=== PATIENT | male | born 1970 | race Caucasian/White ===

== ENCOUNTER 2022-03-16 23:34 | Emergency (ER) | payer SELFPAY ==
--- OUTSIDE RECORDS SUMMARY | 2022-03-16 23:37 | XMS REPORT | Continuity of Care Document ---
:1970 Author Organization [facility] t Address [address] [place] [address] Care Team Providers Name Role Phone Bui_Q Attending Clinician Unavailable Bui_Q_WAG Attending Clinician Unavailable Xu Attending Clinician Unavailable MAXWELL Attending Clinician Unavailable DEAN Attending Clinician Unavailable DO DIANA DENIS Attending Clinician Unavailable Bui_Jonathon Admitting Clinician Unavailable Bui_Q_WAG Admitting Clinician Unavailable Xu Admitting Clinician Unavailable CIRA Admitting Clinician Unavailable TRACI, NELIDA Admitting Clinician Unavailable Payers Payer Name Policy Type Policy Number Effective Date Expiration Date S ource [place] [id number] 2017 00:00:00 [place] Problems Condition Condition Condition Status Onset Resolution Last Treating Co mments Source Name Details Category Date Date Treatment Clinician Date Hypertensi Hypertensi Problem Active V illage ve ve 9 Family disorder Disorder 00:00: Practi c 00 e Allergies, Adverse Reactions, Alerts This patient has no known allergies or adverse reactions. Social History Smoking Status Start Date Stop Date Source Heavy Tobacco Smoker [facility] Medications Ordered Filled Start Stop Current Ordering Indication Dosage Frequency Signature Comments Components Source Medication Medication Date Date Medication? Clinician (SIG) Name Name diclofenac diclofenac No 1 BID diclofenac [place] sodium 75 sodium 75 sodium 75 da mg mg mg Medical tablet,girma tablet,girma tablet,del Group yed release yed release ayed Take 1 Take 1 release tablet tablet Take 1 twice a day twice a day tablet by oral by oral twice a route. route. day by oral route. Medrol Medrol No 1dose Medrol [place] (Edvin) 4 mg (Edvin) 4 mg pk(s) (Edvin) 4 mg da tablets in tablets in tablets in Medical a dose pack a dose pack a dose Group Take 1 dose Take 1 dose pack Take pk by oral pk by oral 1 dose pk route. route. by oral route. ramipril ramipril No ramipril Melissa sheyla 2.5 mg 2.5 mg 2.5 mg Family capsule capsule capsule Practi c e Immunizations Ordered Immunization Filled Immunization Date Status Commen ts Source Name Name Tdap Tdap 2018-06-[address] [facility] 00:00:00 Practice Vital Signs Vital Name Observation Time Observation Value Comments Source BP Diastolic 2020-11-21 00:00:00 90 mm[Hg] [facility] Height 2020-11-21 00:00:00 71 [in_i] [facility] BMI (Body Mass 2020-11-21 00:00:00 21.8 kg/m2 [facility]) Practice BP Systolic 2020-11-21 00:00:00 129 mm[Hg] [facility] Body Weight 2020-11-21 00:00:00 156.2 [lb_av] [facility] BP Diastolic 2020-11-08 00:00:00 74 mm[Hg] [facility] Height 2020-11-08 00:00:00 71 [in_i] [facility] BMI (Body Mass 2020-11-08 00:00:00 22.6 kg/m2 [facility]) Practice BP Systolic 2020-11-08 00:00:00 122 mm[Hg] [facility] Body Weight 2020-11-08 00:00:00 161.8 [lb_av] [facility] BP Diastolic 2020-08-30 00:00:00 102 mm[Hg] [facility] Height 2020-08-30 00:00:00 71 [in_i] [facility] BMI (Body Mass 2020-08-30 00:00:00 22.3 kg/m2 [facility] Group BP Systolic 2020-08-30 00:00:00 146 mm[Hg] [facility] Body Weight 2020-08-30 00:00:00 160.2 [lb_av] [facility] Procedures Procedure Date / Time Performed Performing Clinician Sour e Neurosurgery (Brain) 2009-11-04 00:00:00 [facility] Appendectomy [facility] Encounters Start End Encounter Admission Attending Care Care Encounter Source Date/Time Date/Time Type Type Clinicians Facility Department ID 2020-11-23 2020-11-23 Outpatient Bui_Q VFP VFP [id number] [facility] 09:17:00 09:17:00 [id number] Family Practic e 2020-11-21 2020-11-21 Outpatient Bui_Q VFP VFP [id number] [facility] 12:26:00 12:26:00 [id number] Family Practic e 2020-11-21 2020-11-21 [place] VFP [place] - [id number] [facility] 00:00:00 00:00:00 [facility] Practi rubén MD: [id number] [address] [facility], [address] [address] , Ph. 2020-11-14 2020-11-14 Outpatient Bui_Q_WAG VFP VFP [id number] [id number] [facility] 07:56:00 07:56:00 [id number] Family Practic e 2020-11-14 2020-11-14 Outpatient Bui_Q_WAG VFP VFP [id number] [facility] 07:56:00 07:56:00 [id number] Family Practic e 2020-11-08 2020-11-08 Outpatient Bui_Q VFP VFP [id number] [facility] 11:50:00 11:50:00 [id number] Family Practic e 2020-11-08 2020-11-08 [place] [facility]FP [place] - [id number] [facility] 00:00:00 00:00:00 [facility] - Practi rubén MD: [id number] [address] [facility], [address], [place] [address] , Ph. 2020-09-22 2020-09-22 Outpatient cMcDonald MMG MMG [id number] [facility] 12:07:00 12:07:00 1119 [facility] 2020-09-03 2020-09-03 Outpatient cMcDonald MMG MMG [id number] [facility] 02:17:00 02:17:00 [facility] 2020-08-30 2020-08-30 Outpatient cMcDonald MMG MMG [id number] [facility] 10:53:00 10:53:00 1027 [facility] 2020-08-30 2020-08-30 Alex [facility] [place] - [id number] M [facility] 00:00:00 00:00:00 Discovery patrizia Enrique MD: [address] [facility] [place] - [address], [place] [address] , Ph. 2020-08-18 2020-08-18 Outpatient cMcDonald [facility] [id number] [place] 12:31:00 12:31:00 1015 Medical Group 2020-08-18 2020-08-18 Outpatient cMcDonald [facility] [id number] [place] 12:31:00 12:31:00 1022 [facility] 2020-08-16 2020-08-16 Emergency ANDERSON ARREOLA [facility] [id number] [place] 00:00:00 00:00:00 [id number] Method i 2020-05-19 2020-05-20 Outpatient DEAN [facility] [id number] [place] 00:00:00 00:00:00 HOLLANDKYLAHPAULINE 501 Met hodi 2019-09-09 2019-09-09 Outpatient Bui_Q_WAG VFP [facility] [id number] [facility] 09:30:00 09:30:00 [id number] Family Practic e Results Test Description Test Time Test Comments Results Result Comments Source Cortisol [Mass/volume] in Serum or Plasma --morning sp ecimen 2020-11-19 23:24:00 Test Item Value Reference Range Interpretation Comme nts cortisol, A.M. (test code = cortisol, A.M.) 15.1 mcg/dL [facility] [Units/volume] in Serum or [id number] 23:24:00 Test Item Value Reference Range Interpretation Comments insulin (test code = insulin) 5.7 uIU/mL [facility] panel - Serum or [id number] 23:24:00 Test Item Value Reference Range Interpretation Comments cholesterol, total (test 219 mg/dL <200 H code = cholesterol, total) HDL cholesterol (test code = 65 mg/dL > or = 40 HDL cholesterol) triglycerides (test code = 108 mg/dL <150 triglycerides) Cholesterol in LDL 132 mg/dL (calc) H [Mass/volume] in Serum or Plasma (test code = 2089-1) chol/HDLC ratio (test code = 3.4 (calc) <5.0 chol/HDLC ratio) non HDL cholesterol (test 154 mg/dL (calc) <130 H code = non HDL cholesterol) [facility] [Mass Ratio] in [id number] 23:24:00 Test Item Value Reference Range Interpretation Comments creatinine, random urine (test 36 mg/dL 20-320 code = creatinine, random urine) albumin, urine (test code = 0.3 mg/dL see note: albumin, urine) albumin/creatinine ratio, 8 mcg/mg creat <30 random urine (test code = albumin/creatinine ratio, random urine) [facility] [id number] 23:24:00 Test Item Value Reference Range Interpretation Comments glutamic acid decarboxylase 65 Ab (test <5 <5 code = glutamic acid decarboxylase 65 Ab) ia-2 antibody (test code = ia-2 <5.4 <5.4 antibody) insulin autoantibody (test code = <0.4 <0.4 insulin autoantibody) [facility] 2000 panel - Serum or Plasma 2020-11-19 23:24:00 Test Item Value Reference Range Interpretation Comments glucose (test code = 87 mg/dL 65-99 glucose) urea nitrogen (BUN) (test 6 mg/dL 7-25 L code = urea nitrogen (BUN)) creatinine (test code = 0.72 mg/dL 0.70-1.33 creatinine) eGFR non-afr. norwegian 108 mL/min/1.73m2 > or = 60 (test code = eGFR non-afr. norwegian) eGFR (test 125 mL/min/1.73m2 > or = 60 code = eGFR ) BUN/creatinine ratio (test 8 (calc) 6-22 code = BUN/creatinine ratio) sodium (test code = sodium) 136 mmol/L 135-146 potassium (test code = 4.3 mmol/L 3.5-5.3 potassium) chloride (test code = 100 mmol/L 98-110 chloride) carbon dioxide (test code = 26 mmol/L 20-32 carbon dioxide) calcium (test code = 9.7 mg/dL 8.6-10.3 calcium) protein, total (test code = 8.1 g/dL 6.1-8.1 protein, total) albumin (test code = 4.8 g/dL 3.6-5.1 albumin) globulin (test code = 3.3 g/dL (calc) 1.9-3.7 globulin) albumin/globulin ratio 1.5 (calc) 1.0-2.5 (test code = albumin/globulin ratio) bilirubin, total (test code 0.6 mg/dL 0.2-1.2 = bilirubin, total) alkaline phosphatase (test 53 U/L 35-144 code = alkaline phosphatase) AST (test code = AST) 37 U/L 10-35 H ALT (test code = ALT) 30 U/L 9-[address] [facility] Auto Differential panel - [id number] 23:24:00 Test Item Value Reference Range Interpretation Comments white blood cell count (test 7.4 thousand/uL 3.8-10.8 code = white blood cell count) red blood cell count (test 4.91 million/uL 4.20-5.80 code = red blood cell count) hemoglobin (test code = 16.1 g/dL 13.2-17.1 hemoglobin) hematocrit (test code = 45.4 % 38.5-50.0 hematocrit) MCV (test code = MCV) 92.5 fL 80.0-100.0 MCH (test code = MCH) 32.8 pg 27.0-33.0 MCHC (test code = MCHC) 35.5 g/dL 32.0-36.0 RDW (test code = RDW) 12.2 % 11.0-15.0 platelet count (test code = 341 thousand/uL 140-400 platelet count) MPV (test code = MPV) 9.8 fL 7.5-12.5 absolute neutrophils (test 4573 cells/uL 9759-5025 code = absolute neutrophils) absolute lymphocytes (test 1732 cells/uL 850-3900 code = absolute lymphocytes) absolute monocytes (test code 629 cells/uL 200-950 = absolute monocytes) absolute eosinophils (test 407 cells/uL 15-500 code = absolute eosinophils) absolute basophils (test code 59 cells/uL 0-200 = absolute basophils) neutrophils (test code = 61.8 % neutrophils) lymphocytes (test code = 23.4 % lymphocytes) monocytes (test code = 8.5 % monocytes) eosinophils (test code = 5.5 % eosinophils) basophils (test code = 0.8 % basophils) [facility] [Mass/volume] in Serum or [id number] 23:24:00 Test Item Value Reference Range Interpretation Comments C-peptide (test code = C-peptide) 0.92 NG/mL 0.80-3.85 [facility] HospitalThyroxine (T4) free [Mass/volume] in Serum or Plasma 2020-11-19 23:24:00 Test Item Value Reference Range Interpretation Comments T4, free (test code = T4, free) 1.0 NG/dL 0.8-1.8 [facility]yrotropin [Units/volume] in Serum or [id number] 23:24:00 Test Item Value Reference Range Interpretation Comments TSH (test code = TSH) 1.84 mIU/L 0.40-4.50 [facility]Hemoglobin A1c measurement device [id number] 09:54:40 Test Item Value Reference Range Interpretation Comments Hemoglobin A1C Fingerstick: (test code 5.5 = Hemoglobin A1C Fingerstick:) [facility] A[facility] measurement device [id number] 09:54:40 Test Item Value Reference Range Interpretation Comments Hemoglobin A1C Fingerstick: (test code 5.5 = Hemoglobin A1C Fingerstick:) [facility] RNA [Presence] in Respiratory specimen by KELLI with probe [id number] 07:11:50 Test Item Value Reference Range Interpretation Comments SARS-CoV-2 (COVID-19) RNA Not detected Not-Detected [Presence] in Respiratory specimen by KELLI with probe detection (test code = 99539-6)
[2022-03-17] MEDS ORDERED: HYDROCODONE/APAP 5/325 MG TAB ONE (00:11)
--- NOTE | 2022-03-17 01:29 | ER ---
Nurse's Notes [facility] Name: Alvaro Simon Age: 51 yrs Sex: Male : 1970 Arrival Date: 03/16/2022 Time: 23:39 Bed 5 Private MD: Diagnosis: Dental pain;Dental infection Presentation: 03/17 00:01 Chief complaint: Patient states: "I haven't been able to sleep in 3 days because the jb4 pain is so bad. It started as tooth pain, but now it hurts up to my eye, down my neck, and into my ear.". Coronavirus screen: Vaccine status: Patient reports being unvaccinated. At this time, the client does not indicate any symptoms associated with coronavirus-19. Ebola Screen: No symptoms or risks identified at this time. Mechanism of Injury: No Mechanism of Injury. The patient denies any loss of vision. Initial Sepsis Screen: Does the patient meet any 2 criteria? No. Patient's initial sepsis screen is negative. Does the patient have a suspected source of infection? No. Patient's initial sepsis screen is negative. Risk Assessment: Do you want to hurt yourself or someone else? Patient reports no desire to harm self or others. Onset of symptoms was March 13, 2022. 00:01 Method Of Arrival: Ambulatory jb4 00:01 Acuity: RUTH 4 jb4 Triage Assessment: 00:05 General: Appears in no apparent distress. uncomfortable, Behavior is cooperative, jb4 appropriate for age. Pain: Complains of pain in left sided tooth pain Pain radiates to left ear, left eye, left lateral aspect of neck and left anterior aspect of neck Pain currently is 10 out of 10 on a pain scale. Quality of pain is described as throbbing. 00:07 EENT: Reports dental pain. jb4 Historical: - Allergies: 00:03 No Known Allergies; jb4 - Home Meds: 00:03 None [Active]; jb4 - PMHx: 00:03 Hypertensive disorder; jb4 - PSHx: 00:03 None; jb4 - Immunization history:: Client reports having NOT received the Covid vaccine. Flu vaccine is up to date. - Social history:: Smoking status: Patient reports the use of cigarette tobacco products, smokes two packs cigarettes per day. Screenin:06 Abuse screen: Denies threats or abuse. Nutritional screening: No deficits noted. jb4 Tuberculosis screening: No symptoms or risk factors identified. Fall Risk None identified. Assessment: 00:08 EENT: Eyes WNL. Sclera/Cornea are clear in left ear. jb4 01:44 General: Appears in no apparent distress. Behavior is cooperative. Pain: Complains of sm5 pain in neck and left eye and left ear and left anterior aspect of neck and left lateral aspect of neck. Neuro: No deficits noted. Level of Consciousness is awake, alert, obeys commands, Oriented to person, place, time, situation. Cardiovascular: No deficits noted. Capillary refill < 3 seconds Patient's skin is warm and dry. Respiratory: No deficits noted. Airway is patent Trachea midline Respiratory effort is even, unlabored. Vital Signs: 00:01 BP 138 / 80; Pulse 77; Resp 16; Temp 97.7; Pulse Ox 98% on R/A; Pain 10/10; jb4 00:45 BP 164 / 93; Pulse 74; Resp 17; Pulse Ox 94% on R/A; sm5 01:44 BP 136 / 79; Pulse 83; Resp 16; Pulse Ox 96% on R/A; sm5 ED Course: 03/16 23:39 Patient arrived in ED. bp1 23:44 Phu Seay DO is Attending Physician. ms3 23:59 Alexus Dillon, GHAZALA is Primary Nurse. sm5 0514 00:03 Triage completed. jb4 00:05 Arm band placed on right wrist. jb4 00:08 Patient has correct armband on for positive identification. Bed in low position. Pulse jb4 ox on. NIBP on. 01:28 Polo Swan DDS is Referral Physician. ms3 01:45 No provider procedures requiring assistance completed. Patient did not have IV access sm5 during this emergency room visit. Administered Medications: 00:07 Drug: HYDROcodone-acetaminophen 5 mg-325 mg 1 tabs Route: PO; sm5 01:43 Follow up: Response: Pain is decreased sm5 Medication: 01:45 VIS not applicable for this client. sm5 Outcome: :28 Discharge ordered by . ms3 01:45 Discharged to home ambulatory, with family. sm5 01:45 Condition: stable 01:45 Discharge instructions given to patient, family, Instructed on discharge instructions, follow up and referral plans. no drinking with medication, medication usage, Demonstrated understanding of instructions, follow-up care, medications, Prescriptions given X 2. 01:46 Patient left the ED. sm5 Signatures: Jose Luis Johnson, RN RN jb4 Phu Seay DO DO ms3 Edna Ross Sarah RN RN sm5
--- NOTE | 2022-03-17 01:29 | EDPHYS ---
Physician Documentation [facility] Name: Alvaro Simon Age: 51 yrs Sex: Male : 1970 Arrival Date: 03/16/2022 Time: 23:39 Bed 5 Private MD: ED Physician Phu Seay HPI: 03/17 01:28 This 51 yrs old Male presents to ER via Ambulatory with complaints of Jaw Pain, Eye ms3 Pain. 03:53 The patient presents with pain, swelling. The problem is located in the Left upper ms3 tooth. Onset: The symptoms/episode began/occurred 3 day(s) ago. Duration: The symptoms are continuous. Modifying factors: The symptoms are alleviated by nothing, the symptoms are aggravated by nothing. Associated signs and symptoms: Pertinent positives: pain, swelling, Pertinent negatives: chills. Severity of symptoms: At their worst the symptoms were a " 10" out of "10". Historical: - Allergies: 00:03 No Known Allergies; jb4 - Home Meds: 00:03 None [Active]; jb4 - PMHx: 00:03 Hypertensive disorder; jb4 - PSHx: 00:03 None; jb4 - Immunization history:: Client reports having NOT received the Covid vaccine. Flu vaccine is up to date. - Social history:: Smoking status: Patient reports the use of cigarette tobacco products, smokes two packs cigarettes per day. ROS: 03:53 Constitutional: Negative for fever, and chills. Eyes: Negative for injury, pain, ms3 redness, and discharge, Neck: Negative for injury, pain, and swelling, Cardiovascular: Negative for chest pain, and palpitations. Respiratory: Negative for shortness of breath, cough, wheezing, and pleuritic chest pain, Abdomen/GI: Negative for abdominal pain, nausea, vomiting, diarrhea, and constipation, MS/Extremity: Negative for injury and deformity, Skin: Negative for injury, rash, and discoloration. 03:53 ENT: Positive for dental pain. Exam: 03:53 Constitutional: This is a well developed, well nourished patient who is awake, alert, ms3 and in no acute distress. Eyes: Pupils equal round and reactive to light, extra-ocular motions intact. Lids and lashes normal. Conjunctiva and sclera are non-icteric and not injected. Periorbital areas with no swelling, redness, or edema. Neck: Trachea midline, no cervical lymphadenopathy. Supple, full range of motion without nuchal rigidity, or vertebral point tenderness. No Meningismus. Chest/axilla: Normal chest wall appearance and motion. Nontender with no deformity. Cardiovascular: Regular rate and rhythm with a normal S1 and S2. No gallops, murmurs, or rubs. Normal PMI, no JVD. No pulse deficits. Respiratory: Lungs have equal breath sounds bilaterally, clear to auscultation and percussion. No rales, rhonchi or wheezes noted. No increased work of breathing, no retractions or nasal flaring. Skin: Warm, dry with normal turgor. Normal color with no rashes, no lesions, and no evidence of cellulitis. Psych: Awake, alert, with orientation to person, place and time. Behavior, mood, and affect are within normal limits. 03:53 ENT: Dental exam: dental caries, that is severe, fractured teeth are noted, gum swelling, that is mild, missing teeth, diffusely, pain, that is severe. Vital Signs: 00:01 BP 138 / 80; Pulse 77; Resp 16; Temp 97.7; Pulse Ox 98% on R/A; Pain 10/10; jb4 00:45 BP 164 / 93; Pulse 74; Resp 17; Pulse Ox 94% on R/A; sm5 01:44 BP 136 / 79; Pulse 83; Resp 16; Pulse Ox 96% on R/A; sm5 MDM: 00:00 Patient medically screened. ms3 04:27 Differential diagnosis: dental caries, gingivitis, dental abscess, acute necrotizing ms3 ulcerative gingivitis. Data reviewed: vital signs, nurses notes. Counseling: I had a detailed discussion with the patient and/or guardian regarding: the historical points, exam findings, and any diagnostic results supporting the discharge/admit diagnosis, the need for outpatient follow up, a dentist, to return to the emergency department if symptoms worsen or persist or if there are any questions or concerns that arise at home. Administered Medications: 00:07 Drug: HYDROcodone-acetaminophen 5 mg-325 mg 1 tabs Route: PO; sm5 01:43 Follow up: Response: Pain is decreased 5 Disposition Summary: 03/17/22 01:28 Discharge Ordered Location: Home ms3 Condition: Stable ms3 Diagnosis - Dental pain ms3 - Dental infection ms3 Followup: ms3 - With: Polo Swan DDS - When: 2 - 3 days - Reason: Recheck today's complaints Discharge Instructions: - Discharge Summary Sheet ms3 Forms: - Medication Reconciliation Form ms3 - Thank You Letter ms3 - Antibiotic Education ms3 - Prescription Opioid Use ms3 Prescriptions: - penicillin V potassium 250 mg Oral tablet - take 2 tablet by ORAL route 4 times per day for 10 days; 40 tablet; Refills: 0, ms3 Product Selection Permitted - Tylenol-Codeine #3 300 mg-30 mg Oral - take 1 tablet by ORAL route every 6-8 hours; 10 tablet; Refills: 0, Product ms3 Selection Permitted Signatures: Jose Luis Johnson, RN RN jb4 Phu Seay DO DO ms3 Alexus Dillon, RN RN sm5 Corrections: (The following items were deleted from the chart) 03:53 03:52 This 51 yrs old Male presents to ER via Ambulatory with complaints of Jaw Pain, ms3 Eye Pain. ms3
[2022-03-17 16:11] VITALS: TEMP 97.7
[2022-03-17 16:24] VITALS: BP 136/79; O2SAT 96
== END 2022-03-17 01:46 | disposition home or self-care (01) ==
LOC: ER 23:34
DX: K04.7 Periapical abscess without sinus (principal); F17.210 Nicotine dependence, cigarettes, uncomplicated; I10 Essential (primary) hypertension
CPT/HCPCS: 99283

== ENCOUNTER 2023-03-18 19:00 | Emergency (ER) | payer OTHER, SELFPAY ==
--- OUTSIDE RECORDS SUMMARY | 2023-03-18 19:25 | XMS REPORT | Continuity of Care Document ---
:1970 Author Organization [facility] t Address 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 MARY Admitting Clinician Unavailable Payers Payer Name Policy Type Policy Number Effective Date Expiration Date S ad[place] [id number] 2017 00:00:00 [place] Problems Condition Condition Condition Status Onset Resolution Last Treating Co mments Source Name Details Category Date Date Treatment Clinician Date Cellulitis Cellulitis Disease Active 2020-0 M ethodi of right of right 05-20 leg leg 00:00: Hospita 00 l Bite, Bite, Disease Active 0 Methodi snake snake 05-19 00:00: Hospita 00 l Hypertensi Hypertensi Problem Active V illage ve ve 9-25 Family disorder Disorder 00:00: Practi c 00 e Allergies, Adverse Reactions, Alerts Allergy Allergy Status Severity Reaction(s) Onset Inactive Treating Comm ents Source Name Type Date Date Clinician Monosodi Propensi Active Anaphylaxis 2020-0 M ethodi um ty to 16 Glutamat adverse 00:00: Hospita e reaction 00 l s to drug Social History Social Habit Start Date Stop Date Quantity Comments Source [facility] History of tobacco Heavy tobacco [facility] Alcohol intake 2020-08-16 2020-08-16 Current drinker [facility] 00:00:00 00:00:00 of alcohol Hospital (finding) History of Social 2020-08-16 2020-08-[address] function 00:00:00 00:00:00 Hospital Tobacco use and 2020-05-19 2020-05-19 Smokeless [facility] exposure 00:00:00 00:00:00 tobacco non-user Hospital Sex Assigned At [birth year] [facility] 00[facility]00 [facility] Smoking Status Start Date Stop Date Source Heavy Tobacco Smoker [facility] Medications Ordered Filled Start Stop [...] oral route. ramipril ramipril No ramipril Melissa shyela 2.5 mg 2.5 mg 2.5 mg Family capsule capsule capsule Practi c e Immunizations Ordered Immunization Filled Immunization Date Status Commen ts Source Name Name Tdap Tdap 2018-06-15 Completed [facility] Family 00:00:00 Practice Vital Signs Vital Name Observation Time Observation Value Comments Source BP Diastolic 2020-11-21 00:00:00 90 mm[Hg] [facility] Practice Height 2020-11-21 00:00:00 71 [in_i] [facility] BMI (Body Mass 2020-11-21 00:00:00 21.8 kg/m2 [facility] Index) Practice BP Systolic 2020-11-21 00:00:00 129 mm[Hg] [facility] Body Weight 2020-11-21 00:00:00 156.2 [lb_av] [facility] BP Diastolic 2020-11-08 00:00:00 74 mm[Hg] [facility] Height 2020-11-08 00:00:00 71 [in_i] [facility] BMI (Body Mass 2020-11-08 00:00:00 22.6 kg/m2 [facility] Family Index) Practice BP Systolic 2020-11-08 00:00:00 122 mm[Hg] [facility] Body Weight 2020-11-08 00:00:00 161.8 [lb_av] [facility] BP Diastolic 2020-08-30 00:00:00 102 mm[Hg] [facility] Height 2020-08-30 00:00:00 71 [in_i] [facility] BMI (Body Mass 2020-08-30 00:00:00 22.3 kg/m2 [facility] house[facility] Medical Index) Group BP Systolic 2020-08-30 00:00:00 146 mm[Hg] [facility] Body Weight 2020-08-30 00:00:00 160.2 [lb_av] [facility] Procedures Procedure Date / Time Performed Performing Clinician [facility] e Neurosurgery (Brain) 2009-11-04 00:00:00 [facility] Appendectomy [facility] Plan of Care Planned Activity Planned Date Details Comments Source Future Scheduled 2023-02-08 COVID-19 VACCINE (#1) [facility] Test 19:43:47 [code = COVID-19 VACCINE (#1)] Future Scheduled 2023-02-08 Pneumococcal Vaccine: [facility] Test 19:43:47 Pediatrics (0 to 5 Years) and At-Risk Patients (6 to 64 Years) (1 - PCV) [code = Pneumococcal Vaccine: Pediatrics (0 to 5 Years) and At-Risk Patients (6 to 64 Years) (1 - PCV)] Future Scheduled 2023-02-08 Hepatitis C screening [facility] Test 19:43:47 (procedure) [code = 468287814] Future Scheduled 2023-02-08 COLONOSCOPY SCREENING [facility] Test 19:43:47 [code = COLONOSCOPY SCREENING] Future Scheduled 2023-02-08 SHINGLES VACCINES (1 [facility] Test 19:43:47 of 2) [code = SHINGLES VACCINES (1 of 2)] Future Scheduled 2023-02-08 [facility]ACCINE [facility] Test 19:43:47 [code = INFLUENZA VACCINE] Encounters Start End Encounter Admission Attending Care Care Encounter Source Date/Time Date/Time Type Type Clinicians Facility Department ID 2020-11-23 2020-11-23 Outpatient Bui_Q VFP VFP [id number] [facility] 09:17:00 09:17:00 [id number] Family Practic e 2020-11-21 2020-11-21 Garrett Bui_Q VFP [place] - [id number] [facility] 00:00:00 00:00:00 [facility] [id number] Dali Espino MD: [id number] ABIODUN_ZAHIRA_Joaquin arenas [place] [facility] [address] , Ph. 2020-11-14 2020-11-14 Outpatient Bui_Q_WAG VFP VFP [id number] [facility] 07:56:00 07:56:00 [id number] Family Practic e 2020-11-08 2020-11-08 Garrett Bui_Q VFP [place] - [id number] [facility] 00:00:00 00:00:00 [facility] [address] Dali Espino MD: [id number] ABIODUN_ZAHIRA_Joaquin arenas [place] [facility], [address] [address] , Ph. 2020-09-22 2020-09-22 Outpatient cMcDonald MMG [facility] [id number] [place] 12:07:00 12:07:00 [facility] 2020-09-03 2020-09-03 Outpatient cMcDonald MMG MMG [id number] [place] 02:17:00 02:17:00 1031 [facility] 2020-08-30 2020-08-30 Outpatient cMcDonald MMG MMG [id number] [place] 10:53:00 10:53:00 1027 [facility] 2020-08-30 2020-08-30 [facility] [place] [facility] [id number] [facility] 00:00:00 00:00:00 Discovery patrizia Enrique MD: [address] [facility] [place] [address], [place] [address] , Ph. 2020-08-18 2020-08-18 Outpatient [facility] [id number] [place] 12:31:00 12:31:00 1015 Medical Group 2020-08-18 2020-08-18 Outpatient Xu [facility] [id number] [place] 12:31:00 12:31:00 1022 Medical Group 2020-08-16 2020-08-[address] [facility] [id number] [place] 00:00:00 00:00:[address] 2020-05-19 2020-05-[address] [facility] [id number] [place] 00:00:00 00:00:00 HOLLANDKYLAHPAULINE Freedman Met hodi 2019-09-09 2019-09-09 Outpatient Bui_Q_WAG VFP VFP [id number] [facility] 09:30:00 09:30:00 [id number] Family Practic e Results Test Description Test Time Test Comments Results Result Comments Source Cortisol [Mass/volume] in Serum or Plasma --morning sp ecimen 2020-11-19 23:24:00 Test Item Value Reference Range Interpretation Comme nts cortisol, A.M. (test code = cortisol, A.M.) 15.1 mcg/dL [facility] [Units/volume] in Serum or [id number] 23:24:00 Test Item Value Reference Range Interpretation Comments insulin (test code = insulin) 5.7 uIU/mL [facility] panel - Serum or [id number] 23:24:00 Test Item Value Reference Range Interpretation [...] = non HDL cholesterol) [facility]Creatinine [Mass Ratio] in [id number] 23:24:00 Test Item Value Reference Range Interpretation Comments creatinine, random urine (test 36 mg/dL 20-320 code = creatinine, random urine) albumin, urine (test code = 0.3 mg/dL see note: albumin, urine) albumin/creatinine ratio, 8 mcg/mg creat <30 random urine (test code = albumin/creatinine ratio, random urine) [facility], [id number] 23:24:00 Test Item Value Reference Range Interpretation Comments glutamic acid decarboxylase 65 Ab (test <5 <5 code = glutamic acid decarboxylase 65 Ab) ia-2 antibody (test code = ia-2 <5.4 <5.4 antibody) insulin autoantibody (test code = <0.4 <0.4 insulin autoantibody) [facility] 2000 panel - Serum or Plasma 2020-11-19 23:24:00 Test Item Value Reference Range Interpretation Comments glucose (test code = 87 mg/dL 65-99 glucose) urea nitrogen (BUN) (test 6 mg/dL 7-25 L code = urea nitrogen (BUN)) creatinine (test code = 0.72 mg/dL 0.70-1.33 creatinine) eGFR non-afr. swazi 108 mL/min/1.73m2 > or = 60 (test code = eGFR non-afr. swazi) eGFR (test 125 mL/min/1.73m2 > or = [...] (test code = ALT) 30 U/L 9-46 [facility] W Auto Differential panel - [id number] 23:24:00 Test Item Value Reference Range Interpretation [...] fL 7.5-12.5 absolute neutrophils (test 4573 cells/uL 0514-4560 code = absolute neutrophils) absolute lymphocytes (test [...] basophils (test code = 0.8 % basophils) [facility] [Mass/volume] in Serum or [id number] 23:24:00 Test Item Value Reference Range Interpretation Comments C-peptide (test code = C-peptide) 0.92 NG/mL 0.80-3.85 [facility] WomenThyroxine (T4) free [Mass/volume] in Serum or Plasma 2020-11-19 23:24:00 Test Item Value Reference Range Interpretation Comments T4, free (test code = T4, free) 1.0 NG/dL 0.8-1.8 [facility]Thyrotropin [Units/volume] in Serum or [id number] 23:24:00 Test Item Value Reference Range Interpretation Comments TSH (test code = TSH) 1.84 mIU/L 0.40-4.50 [facility] WomenHemoglobin A1c measurement device [id number] 09:54:40 Test Item Value Reference Range Interpretation Comments Hemoglobin A1C Fingerstick: (test code 5.5 = Hemoglobin A1C Fingerstick:) [facility] WomenHemoglobin A1c measurement device [id number] 09:54:40 Test Item Value Reference Range Interpretation Comments Hemoglobin A1C Fingerstick: (test code 5.5 = Hemoglobin A1C Fingerstick:) [facility] [Presence] in Respiratory specimen by KELLI with probe [id number] 07:11:50 Test Item Value Reference Range Interpretation Comments SARS-CoV-2 (COVID-19) RNA Not detected Not-Detected [Presence] in Respiratory specimen by KELLI with probe detection (test code = 89978-1) [facility]
[2023-03-18] MEDS ORDERED: METHYLPREDNISOLONE 125 MG INJ ONE (20:20)
[2023-03-18] MEDS ORDERED: ALBUTEROL 2.5 MG/3 ML NEB SOL ONE (20:20)
[2023-03-18] MEDS ORDERED: IPRATROPIUM BROM 0.5MG/2.5ML ONE (20:20)
--- NOTE | 2023-03-18 20:35 | RAD REPORT ---
EXAM DESCRIPTION: RAD - Chest Pa And Lat (2 Views) - 03/18/2023 8:27 pm CLINICAL HISTORY: DYSPNEA Chest pain. TECHNIQUE: PA and lateral views of the chest were obtained. FINDINGS: The lungs are hyperexpanded compatible with COPD. The heart is upper limit of normal in si ze. No fracture or aggressive bony process. IMPRESSION: COPD without acute process identified. The USPSTF recommends annual screening for lung cancer with low-dose CT (LDCT) in adults aged 50 to 80 years who have a 20 pack-year smoking history and currently smoke or have quit within the past 15 years.
[2023-03-18 21:14] LABS: Absolute Lymphocytes (CBC) 2.7 K/uL (0.7-4.9); Hematocrit 47.1 % (39.6-49.0); MCV 94.2 fL (80-100); MPV 7.1 fL (7.6-11.3)
[2023-03-18 21:31] LABS: Magnesium 2.5 mg/dL (1.6-2.4); Potassium 4.1 mEq/L (3.5-5.1)
[2023-03-18] MEDS ORDERED: NA CHLORIDE 0.9% 1,000 ML ONE (22:29)
--- NOTE | 2023-03-18 22:40 | ER ---
Nurse's Notes [facility] Name: Alvaro Simon Age: 52 yrs Sex: Male : 1970 Arrival Date: 03/18/2023 Time: 19:00 Bed 16 Private MD: Diagnosis: Cough;Shortness of breath;Acute pharyngitis, unspecified Presentation: 03/18 19:20 Chief complaint: Patient states: "I'm having chest tightness, shortness of breath, as6 fatigue, and fever off and on for a week". Coronavirus screen: At this time, the client does not indicate any symptoms associated with coronavirus-19. Ebola Screen: No symptoms or risks identified at this time. Initial Sepsis Screen: Does the patient meet any 2 criteria? No. Patient's initial sepsis screen is negative. Does the patient have a suspected source of infection? No. Patient's initial sepsis screen is negative. Risk Assessment: Do you want to hurt yourself or someone else? Patient reports no desire to harm self or others. Onset of symptoms was March 11, 2023. 19:20 Method Of Arrival: Ambulatory as6 19:20 Acuity: RUTH 3 as6 Triage Assessment: 20:30 General: Appears in no apparent distress. uncomfortable, Behavior is calm, cooperative, eh3 appropriate for age. Musculoskeletal: Circulation, motion, and sensation intact. Range of motion: intact in all extremities. Historical: - Allergies: 19:27 No Known Allergies; as6 - Home Meds: 19:27 None [Active]; as6 - PMHx: 19:27 None; as6 - PSHx: 19:27 back; Appendectomy; as6 - Immunization history:: Client reports having NOT received the Covid vaccine. - Social history:: Smoking status: Patient reports the use of cigarette tobacco products, smokes one pack cigarettes per day. Screenin:30 [facility] ED Fall Risk Assessment (Adult) Score/Fall Risk Level 0 - 2 = Low Risk. Abuse eh3 screen: Denies threats or abuse. Denies injuries from another. Nutritional screening: No deficits noted. Tuberculosis screening: No symptoms or risk factors identified. Assessment: 20:30 General: Appears in no apparent distress. uncomfortable. Pain: Complains of pain in eh3 back. Neuro: Level of Consciousness is awake, alert, obeys commands, Oriented to person, place, time, situation. Cardiovascular: Capillary refill < 3 seconds Patient's skin is warm and dry. Respiratory: Reports shortness of breath at rest labored breathing Airway is patent Respiratory effort is even, labored, Respiratory pattern is regular, symmetrical. GI: Abdomen is round non-distended. : No signs and/or symptoms were reported regarding the genitourinary system. EENT: No signs and/or symptoms were reported regarding the EENT system. Derm: Skin is pink, warm \\T\\ dry. Musculoskeletal: Circulation, motion, and sensation intact. 21:30 Reassessment: Patient appears in no apparent distress at this time. Patient and/or eh3 family updated on plan of care and expected duration. Pain level reassessed. Patient is alert, oriented x 3, equal unlabored respirations, skin warm/dry/pink. 22:30 Reassessment: Patient appears in no apparent distress at this time. Patient and/or eh3 family updated on plan of care and expected duration. Pain level reassessed. Patient is alert, oriented x 3, equal unlabored respirations, skin warm/dry/pink. Patient states symptoms have improved. 22:40 Reassessment: Pt discharged pending completion of 1000mL NS bolus. 650mL remains to be eh3 infused. Vital Signs: 19:20 BP 146 / 96; Pulse 91; Resp 18 S; Temp 98.1(O); Pulse Ox 96% on R/A; Weight 72.57 kg as6 (R); Height 5 ft. 11 in. (R); Pain 7/10; 20:36 BP 142 / 93; Pulse 78; Resp 18; Pulse Ox 100% on 8 lpm Nebulizer Mask; eh3 21:30 BP 143 / 90; Pulse 85; Resp 13; Pulse Ox 98% on R/A; eh3 22:30 BP 137 / 93; Pulse 89; Resp 18; Pulse Ox 97% on R/A; eh3 19:20 Body Mass Index 22.32 (72.57 kg, 180.34 cm) as6 19:20 Pain Scale: Adult as6 ED Course: 19:05 Patient arrived in ED. ja2 19:27 Triage completed. as6 19:28 Arm band placed on. as6 19:42 Raman Alford PA is PHCP. cp 19:42 Phu Seay DO is Attending Physician. cp 19:45 Influenza Screen (a \\T\\ B) Sent. wm 19:45 Strep Sent. wm 19:45 COVID-19 SARS RT PCR Sent. wm 19:45 COVID swab sent to lab. Flu and/or RSV swab sent to lab. Strep swab sent to lab. 20:10 Jose Luis Johnson, RN is Primary Nurse. jb4 20:28 XRAY Chest Pa And Lat (2 Views) In Process Unspecified. EDMS 20:30 Patient has correct armband on for positive identification. Bed in low position. Call eh3 light in reach. Side rails up X2. Client placed on continuous cardiac and pulse oximetry monitoring. NIBP monitoring applied. Door closed. Noise minimized. Lights dimmed. Warm blanket given. 20:30 Inserted saline lock: 20 gauge in left antecubital area, using aseptic technique. Blood eh3 collected. 23:04 No provider procedures requiring assistance completed. eh3 Administered Medications: 20:30 Drug: MethylPrednisoLONE IVP 125 mg Route: IVP; Site: left antecubital; eh3 21:30 Follow up: Response: No adverse reaction eh3 20:43 Drug: DuoNeb Nebulize (2.5 mg - 0.5 mg) 3 ml Route: Nebulizer; eh3 21:09 Follow up: Response: No adverse reaction eh3 22:15 Drug: NS 0.9% IV 1000 ml Route: IV; Rate: 1 bolus; Site: left antecubital; eh3 Medication: 23:04 VIS not applicable for this client. eh3 Outcome: 22:40 Discharge ordered by MD. cp 23:17 Patient left the ED. eh3 Signatures: Dispatcher [employer] EDOK Raman Alford PA PA Jose Luis Cortez, RN RN jb4 Peyton Lofton Louise Cardenas Ashby, RN RN as6 Haylee Gibson RN RN eh3
--- NOTE | 2023-03-18 22:40 | EDPHYS ---
Physician Documentation [facility] Name: Alvaro Simon Age: 52 yrs Sex: Male : 1970 Arrival Date: 03/18/2023 Time: 19:00 Bed 16 Private MD: ED Physician Phu Seay HPI: 03/18 19:33 This 52 yrs old Male presents to ER via Ambulatory with complaints of Back Pain, cp Breathing Difficulty, Flank Pain. 19:33 The patient or guardian reports cough, with no sputum, difficulty breathing. cp 19:33 Onset: The symptoms/episode began/occurred for over 1 week. The patient presents with cp pain that is acute, with no known mechanism of injury. The symptoms are located in the upper back. Associated signs and symptoms: Pertinent positives: fever, Pertinent negatives: abdominal pain, chest pain, headache, incontinence, numbness. Severity of symptoms: in the emergency department the symptoms are unchanged, despite home interventions. Historical: - Allergies: 19:27 No Known Allergies; as6 - Home Meds: 19:27 None [Active]; as6 - PMHx: 19:27 None; as6 - PSHx: 19:27 back; Appendectomy; as6 - Immunization history:: Client reports having NOT received the Covid vaccine. - Social history:: Smoking status: Patient reports the use of cigarette tobacco products, smokes one pack cigarettes per day. ROS: 19:40 Constitutional: Positive for body aches, Negative for fever, poor PO intake. cp 19:40 Cardiovascular: Negative for chest pain, edema, palpitations. 19:40 Eyes: Negative for injury, pain, redness, and discharge. cp 19:40 ENT: Negative for drainage from ear(s), ear pain, sore throat, difficulty swallowing, difficulty handling secretions. 19:40 Neck: Negative for pain with movement, pain at rest, stiffness. 19:40 Respiratory: Positive for cough, with no reported sputum, shortness of breath, at rest. 19:40 Abdomen/GI: Negative for abdominal pain, vomiting, diarrhea, constipation. 19:40 Back: Positive for pain at rest, pain with movement, of the left scapular area, right scapular area, left subscapular area and right subscapular area, Negative for injury or acute deformity. 19:40 : Negative for urinary symptoms. 19:40 Skin: Negative for rash. 19:40 Neuro: Negative for altered mental status, dizziness, headache, syncope, weakness. 19:40 All other systems are negative. Exam: 19:43 Constitutional: The patient appears in no acute distress, alert, awake, cp non-diaphoretic, non-toxic, well developed, well nourished. 19:43 Head/Face: Normocephalic, atraumatic. cp 19:43 Eyes: Periorbital structures: appear normal, Conjunctiva: normal, no exudate, no injection, Sclera: no appreciated abnormality, Lids and lashes: appear normal, bilaterally. 19:43 ENT: External ear(s): are unremarkable, Ear canal(s): are normal, clear, TM's: dullness, bilaterally, Nose: is normal, Mouth: Lips: moist, Oral mucosa: moist, Posterior pharynx: Airway: no evidence of obstruction, patent, Tonsils: no enlargement, no exudate, erythema, that is mild, exudate, is not appreciated. 19:43 Neck: ROM/movement: is normal, is supple, without pain, no range of motions limitations, no meningismus. 19:43 Chest/axilla: Inspection: normal. 19:43 Cardiovascular: Rate: normal, Rhythm: regular, Edema: is not appreciated, JVD: is not appreciated. 19:43 Respiratory: the patient does not display signs of respiratory distress, Respirations: normal, no use of accessory muscles, no retractions, no splinting, no tachypnea, Breath sounds: bronchial sounds, that are mild, are heard diffusely, stridor, is not appreciated, + upper airway congestion. wheezing: that is mild, is heard diffusely. 19:43 Abdomen/GI: Exam negative for discomfort, distension, guarding, Inspection: abdomen appears normal. 19:43 Back: pain, that is mild, of the left scapular area, right scapular area, left subscapular area and right subscapular area, ROM is normal. 19:43 Skin: cellulitis, is not appreciated, no rash present. 19:43 Neuro: Orientation: to person, place \T\ time. Mentation: is normal, Motor: moves all fours, strength is normal, Sensation: is normal. 20:27 ECG was reviewed by the Attending Physician. cp Vital Signs: 19:20 BP 146 / 96; Pulse 91; Resp 18 S; Temp 98.1(O); Pulse Ox 96% on R/A; Weight 72.57 kg as6 (R); Height 5 ft. 11 in. (R); Pain 7/10; 20:36 BP 142 / 93; Pulse 78; Resp 18; Pulse Ox 100% on 8 lpm Nebulizer Mask; eh3 21:30 BP 143 / 90; Pulse 85; Resp 13; Pulse Ox 98% on R/A; eh3 22:30 BP 137 / 93; Pulse 89; Resp 18; Pulse Ox 97% on R/A; eh3 19:20 Body Mass Index 22.32 (72.57 kg, 180.34 cm) as6 19:20 Pain Scale: Adult as6 MDM: 19:46 Patient medically screened. cp 22:40 Data reviewed: vital signs, nurses notes, lab test result(s), EKG, radiologic studies, cp plain films. 22:40 Antibiotic administration: The patient is discharged and will get outpatient antibiotics. Differential diagnosis: bronchitis, flu, lung mass, copd Basilar Pneumonia. Consideration of Admission/Observation Escalation of care including admission/observation considered. I considered the following discharge prescriptions or medication management in the emergency department Medications were administered in the Emergency Department. See MAR. Counseling: I had a detailed discussion with the patient and/or guardian regarding: the historical points, exam findings, and any diagnostic results supporting the discharge/admit diagnosis, lab results, radiology results, the need for outpatient follow up, a family practitioner, to return to the emergency department if symptoms worsen or persist or if there are any questions or concerns that arise at home. Response to treatment: the patient's symptoms have markedly improved after treatment, and as a result, I will discharge patient. 03/18 19:29 Order name: COVID-19 SARS RT PCR; Complete Time: 21:11 as6 03/18 21:11 Interpretation: Reviewed. 03/18 19:29 Order name: Influenza Screen (a \T\ B); Complete Time: 21:11 as6 03/18 21:11 Interpretation: Reviewed. 03/18 19:29 Order name: Strep; Complete Time: 21:11 as6 03/18 21:11 Interpretation: Reviewed. 03/18 19:47 Order name: Basic Metabolic Panel; Complete Time: 21:54 cp 03/18 21:54 Interpretation: Normal except: NA 130; CL 97; BUN 5; CRE 0.69. cp 03/18 19:47 Order name: CBC with Diff; Complete Time: 21:54 cp / 21:54 Interpretation: Normal except: WBC 11.70; MPV 7.1. cp / 19:47 Order name: D-Dimer; Complete Time: 21:54 cp 03/18 19:47 Order name: Magnesium; Complete Time: 21:54 cp 03/18 19:47 Order name: NT PRO-BNP; Complete Time: 21:54 cp 03/18 19:47 Order name: Troponin HS; Complete Time: 21:54 cp 03/18 19:47 Order name: Lipase; Complete Time: 21:54 cp 03/18 20:31 Order name: Throat Culture EDSC 03/18 19:43 Order name: XRAY Chest Pa And Lat (2 Views); Complete Time: 21:11 as6 03/18 21:11 Interpretation: Report reviewed. 03/18 19:29 Order name: EKG - Nurse/Tech; Complete Time: 20:43 as6 03/18 19:47 Order name: Cardiac monitoring; Complete Time: 20:43 cp 03/18 19:47 Order name: IV Saline Lock; Complete Time: 21:09 cp 03/18 19:47 Order name: Labs collected and sent; Complete Time: 21:09 cp 03/18 19:47 Order name: O2 Per Protocol; Complete Time: 20:43 cp 03/18 19:47 Order name: O2 Sat Monitoring; Complete Time: 20:43 cp EC:27 Rate is 83 beats/min. Rhythm is regular. ME interval is normal. QRS interval is normal. cp QT interval is normal. T waves are Inverted in lead aVR. Interpreted by me. Reviewed by me. Administered Medications: 20:30 Drug: MethylPrednisoLONE IVP 125 mg Route: IVP; Site: left antecubital; 3 21:30 Follow up: Response: No adverse reaction 3 20:43 Drug: DuoNeb Nebulize (2.5 mg - 0.5 mg) 3 ml Route: Nebulizer; 3 21:09 Follow up: Response: No adverse reaction eh3 22:15 Drug: NS 0.9% IV 1000 ml Route: IV; Rate: 1 bolus; Site: left antecubital; eh3 Disposition: 03/19 11:12 Co-signature as Attending Physician, Phu Seay DO I was immediately available on-site ms3 in the Emergency Department for consultation in the care of the patient. Disposition Summary: 03/18/23 22:40 Discharge Ordered Location: Home cp Problem: new cp Symptoms: have improved cp Condition: Stable cp Diagnosis - Cough cp - Shortness of breath cp - Acute pharyngitis, unspecified cp Followup: cp - With: Private Physician - When: 2 - 3 days - Reason: Recheck today's complaints Discharge Instructions: - Pharyngitis cp - Sore Throat cp - Cough, Adult cp - Discharge Summary Sheet 3 Forms: - Medication Reconciliation Form cp - Thank You Letter cp - Antibiotic Education cp - Prescription Opioid Use cp - Work release form eh3 Prescriptions: - Bromfed DM 2-30-10 mg/5 mL Oral syrup - administer 10 milliliter by ORAL route every 6 hours as needed for cold cp symptoms; 180 milliliter; Refills: 0, Product Selection Permitted - albuterol sulfate 90 mcg/actuation Inhalation HFA Aerosol Inhaler - inhale 2 puff by INHALATION route every 4-6 hours As needed as needed for cp bronchospasm; administer via ventilator; 1 unit; Refills: 0, Product Selection Permitted - Zithromax Z-Edvin 250 mg Oral Tablet - take 1 tablet by ORAL route as directed for 5 days Day 1 - take two (2) tablets cp one time. Day 2, 3, 4 , 5 take one (1) tablet once daily.; 6 tablet; Refills: 0, Product Selection Permitted - Prednisone 20 mg Oral Tablet - take 2 tablets by ORAL route once daily for 5 days; 10 tablet; Refills: 0, cp Product Selection Permitted Signatures: Dispatcher [employer] EDMS Raman Alford PA PA cp Phu Seay DO DO ms3 Moses Jeong RN RN as6 Haylee Gibson RN RN eh3 Corrections: (The following items were deleted from the chart) 22:49 22:46 Constitutional: Positive for body aches, Negative for fever, poor PO intake, cp cp 22:49 22:46 Cardiovascular: Negative for chest pain, edema, palpitations, cp cp
[2023-03-18 23:47] VITALS: TEMP 98.1
[2023-03-18 23:55] VITALS: BP 137/93; O2SAT 97
--- NOTE | 2023-03-19 13:49 | EKG ---
Test Date: 2023-03-18 Test Time: 20:21:02 Home Teaching Grades 9 Thru 12 Teacher: [employer] MEASUREMENT RESULTS: Intervals: Rate: 83 [place]: 162 QRSD: 96 QT: 370 QTc: 434 [place]: P: 75 [place]: 162 QRS: 59 T: 53 INTERPRETIVE STATEMENTS: Normal sinus rhythm Normal ECG No previous ECG available for comparison Electronically Signed On 03-19-23 13:48:12 CDT by Erwin Hoskins
== END 2023-03-18 23:17 | disposition home or self-care (01) ==
LOC: ER 19:00
DX: R06.02 Shortness of breath (principal); R05.9 Cough, unspecified; J02.9 Acute pharyngitis, unspecified; F17.210 Nicotine dependence, cigarettes, uncomplicated; Z20.822 Contact with and (suspected) exposure to COVID-19
CPT/HCPCS: 93005; 87070; 85025; 80048; 36415; 83735; 85379; 87081; 84484; 83690; 83880; 87804 ×2; 71046; 94640; 96374; 99284; U0003; J7613; J7644; J2930; J7030